=== PATIENT | male | born 1955 | race Caucasian/White ===

== ENCOUNTER 2016-11-04 11:12 | Emergency (ER) | payer BC ==
[2016-11-04 12:25] VITALS: BP 143/83
--- NOTE | 2016-11-04 13:05 | UC ---
Throat Pain/Nasal Michael HPI - HPI Summary HPI Summary: complaint of cough nasal congestion that started approx 5 days ago coughing up yellow phlegm sore throat that is resolving intermittent headaches slight muscle achiness denies ear pain denies N/V/D denies fever and chills took mucinex without relief this morning - History of Current Complaint Chief Complaint: UCGeneralIllness Stated Complaint: CONGESTION Time Seen by Provider: 11/04/16 12:54 Hx Obtained From: Patient - Allergies/Home Medications Allergies/Adverse Reactions: Allergies Allergy/AdvReac Type Severity Reaction Status Date / Time No Known Allergies Allergy Verified 11/04/16 12:25 PMH/Surg Hx/FS Hx/Imm Hx Previously Healthy: Yes Cardiovascular History Of: Reports: Hypertension - Surgical History Surgical History: Yes Surgery Procedure, Year, and Place: 2013 b/l leg veins endartectomy, right leg stent, - Family History Known Family History: Positive: Hypertension Negative: Cardiac Disease, Diabetes - Social History Occupation: Employed Full-time Lives: With Family Alcohol Use: Daily Alcohol Amount: 2-3 wine Substance Use Type: None Smoking Status (MU): Former Smoker When Did the Patient Quit Smoking/Using Tobacco: 2003 - Immunization History Most Recent Influenza Vaccination: 2012 Review of Systems Constitutional: Negative Skin: Negative Eyes: Negative ENT: Sore Throat, Nasal Discharge Respiratory: Cough Cardiovascular: Negative Gastrointestinal: Negative Genitourinary: Negative Motor: Negative Neurovascular: Negative Musculoskeletal: Negative Neurological: Negative Psychological: Negative All Other Systems Reviewed And Are Negative: Yes Physical Exam Triage Information Reviewed: Yes Appearance: No Pain Distress, Well-Nourished Vital Signs: Initial Vital Signs Temp 99.4 F 11/04/16 12:21 Pulse 92 11/04/16 12:21 Resp 16 11/04/16 12:21 BP 143/83 11/04/16 12:21 Pulse Ox 99 11/04/16 12:21 Vital Signs Reviewed: Yes Eyes: Positive: Conjunctiva Clear ENT: Positive: Pharyngeal erythema, Nasal congestion, TM bulging. Negative: TM red, Tonsillar swelling, Tonsillar exudate Neck: Positive: No Lymphadenopathy Respiratory: Positive: Lungs clear, Normal breath sounds, No respiratory distress Cardiovascular: Positive: RRR, No Murmur, Pulses Normal Abdomen Description: Positive: Nontender, Soft Bowel Sounds: Positive: Present Musculoskeletal: Positive: No Edema Neurological: Positive: Alert Psychological Exam: Normal Skin Exam: Normal Throat Pain/Nasal Course/Dx - Differential Dx/Diagnosis Differential Diagnosis/HQI/PQRI: Influenza, Pharyngitis, URI Provider Diagnoses: URI Discharge - Discharge Plan Condition: Stable Disposition: HOME Patient Education Materials: Upper Respiratory Infection (ED) Referrals: Mervat Nino MD [Primary Care Provider] - Additional Instructions: VIRAL UPPER RESPIRATORY INFECTION (COMMON COLD) What is Viral Upper Respiratory Infection? Viral upper respiratory infection is the medical term for the common cold. Respiratory infections can be caused by either a virus or bacteria. The common cold is caused by a virus. The virus travels through the air and can be passed easily from one person to another. This is one reason that it is so important to cover your mouth when you cough or sneeze. When you cover your mouth you will get the virus on your hands. If you touch something with that hand the virus is spread to the object you touch. Because of this you should be sure to wash your hands often when you have a cold. Symptoms usually begin 1 to 3 days after the virus takes hold in your body. Other people can catch your cold even before you start to notice symptoms, which is one reason why colds are hard to prevent. Symptoms May Include: Scratchiness or tickling in the throat Sore throat Stuffy nose Generalized aches and pains Coughing or sneezing Feeling tired Treatment Recommendations: Drink plenty of clear, nonalcoholic fluids, such as water, sports drinks, or juice. For example, an average adult should drink 8 ounces every hour, a child 6 to 10 years should drink 4 ounces every hour, and a child under 6 should drink 1 to 2 ounces every hour. You should rest as much as possible. You can use a cool-mist humidifier or steam vaporizer to increase air moisture. This will make it easier to breathe. Remember that a steam vaporizer may contain hot water that can cause severe frances. If you smoke, stopsmoke irritates bronchial passages. If you are coughing up mucus, and milk seems to make the sputum thicker, do not eat or drink foods that contain milk. You want to try to cough up mucous whenever possible so that you dont get pneumonia. Do not use cough suppressant medicine without your healthcare providers [place]. You should take all medications prescribed until completely gone, or as instructed. Non-prescription medicine such as acetaminophen (Tylenol) or ibuprofen (Motrin , Advil) may help your aches, pains, and fever. Do not take someone else's medicine, or penicillin tablets that you may have saved. You could cause a more serious problem than you already have. Don't bundle up to sweat out a fever. It only makes your fever worse. If you feel cold, cover up; if you feel warm, dress lightly.
== END 2016-11-04 13:15 | disposition home or self-care (01) ==
LOC: UCCORT 11:12
DX: J06.9 Acute upper respiratory infection, unspecified (principal); Z95.820 Peripheral vascular angioplasty status with implants and grafts; Z87.891 Personal history of nicotine dependence
CPT/HCPCS: 99211; G0463

== ENCOUNTER 2016-11-27 09:55 | Emergency (ER) | payer BC ==
--- NOTE | 2016-11-27 11:40 | UC ---
Back Pain HPI - HPI Summary HPI Summary: 3d ago was lifting a heavy 200lb log, felt sudden shocking pain in lower back which brought him to his knees. Pain since then. Hard to get comfortable. Feels best to stand. Hurts most to get up from bed, or get out of chair/car. No history of similar pain in past. Does not have chronic back pains. Now every movement hurts, twisting, bending. - History of Current Complaint Chief Complaint: UCBackPain Stated Complaint: BACK PAIN Time Seen by Provider: 11/27/16 11:28 Hx Obtained From: Patient Onset/Duration: Sudden Onset, Lasting Days - 3 Timing: Constant Severity Initially: Severe Severity Currently: Moderate Back Pain: Is Discrete @ - left lumbar area, radiates to left thigh Character: Sharp, Aching, Stiffness Aggravating: Movement, Lifting, Bending Alleviating: Rest, Position Associated Signs And Symptoms: Positive: Pain with Weight Bearing - Risk Factors AAA Risk Factors: Negative TAD Risk Factors: Negative Cauda Equina Risk Factors: Negative Epidural Abscess Risk Factors: Negative - Allergies/Home Medications Allergies/Adverse Reactions: Allergies Allergy/AdvReac Type Severity Reaction Status Date / Time No Known Allergies Allergy Verified 11/04/16 12:25 Home Medications: Home Medications Ibuprofen TAB* [Advil TAB*] 400 mg PO Q6H PRN 11/27/16 [History Confirmed ] PMH/Surg Hx/FS Hx/Imm Hx Cardiovascular History Of: Reports: Hypertension - Surgical History Surgical History: Yes Surgery Procedure, Year, and Place: 2013 b/l leg veins endartectomy, right leg stent, - Family History Known Family History: Positive: Hypertension Negative: Cardiac Disease, Diabetes - Social History Occupation: Employed Full-time Lives: With Family Alcohol Use: Daily Alcohol Amount: 3 mj daily Substance Use Type: None Smoking Status (MU): Former Smoker When Did the Patient Quit Smoking/Using Tobacco: 2003 - Immunization History Most Recent Influenza Vaccination: 2012 Review of Systems Constitutional: Negative Skin: Negative Eyes: Negative ENT: Negative Respiratory: Negative Cardiovascular: Negative Gastrointestinal: Negative Genitourinary: Negative Motor: Negative Neurovascular: Negative Musculoskeletal: Arthralgia, Decreased ROM, Myalgia Neurological: Negative Psychological: Negative All Other Systems Reviewed And Are Negative: Yes Physical Exam Triage Information Reviewed: Yes Appearance: Well-Appearing, No Pain Distress, Well-Nourished Vital Signs: Initial Vital Signs Temp 99.3 F 11/27/16 11:12 Pulse 82 11/27/16 11:12 Resp 16 11/27/16 11:12 BP 153/69 11/27/16 11:12 Pulse Ox 100 11/27/16 11:12 Vital Signs Reviewed: Yes Eye Exam: Normal ENT: Positive: Hearing grossly normal Neck exam: Normal Neck: Positive: Supple, Nontender Respiratory Exam: Normal Cardiovascular Exam: Normal Musculoskeletal Exam: Other - pain in left lumbar area, palpable muscle tightness there. Little discomfort with palpation. Hurts to twist/bend. Normal sensation. Stiff gait. Neurological Exam: Normal Psychological Exam: Normal Skin Exam: Normal Diagnostics - Laboratory Diagnostic Studies Completed/Ordered: XRay LS spine: L5-S1 DJD, no acute Back Pain Course/Dx - Differential Dx/Diagnosis Differential Diagnosis/HQI/PQRI: Herniated Disc, Strain, Sprain Provider Diagnoses: low back strain Discharge - Discharge Plan Condition: Stable Disposition: HOME Prescriptions: Cyclobenzaprine TAB* [Flexeril TAB*] 10 mg PO TID PRN #30 tab PRN Reason: back spasms HYDROcodone/ACETAMIN 5-325 MG* [[place] 5-325 TAB*] 1 - 2 tab PO Q6H PRN #30 tab MDD 6 tab PRN Reason: Pain Patient Education Materials: Low Back Strain (ED), Lower Back Exercises (ED) Referrals: Sujatha Harding MD [Primary Care Provider] -
--- NOTE | 2016-11-27 12:15 | RAD ---
INDICATION: Back pain after lifting COMPARISON: None TECHNIQUE: Routine PA, lateral, and oblique imaging was performed . FINDINGS: Bones: There are no acute bony findings. There are minor degenerative changes with endplate sclerosis.. Alignment: Normal Disc spaces: There is minor narrowing about L5-S1 Soft tissues: There are extensive vascular calcifications of the aorta and iliac vessels. IMPRESSION: MINOR DEGENERATIVE DISC DISEASE L5-S1. VASCULAR CALCIFICATIONS.
[2016-11-27 12:40] VITALS: BP 147/78
== END 2016-11-27 12:40 | disposition home or self-care (01) ==
LOC: UCCORT 09:55
DX: S39.012A Strain of muscle, fascia and tendon of lower back, initial encounter (principal); X50.0XXA Overexertion from strenuous movement or load, initial encounter; X50.9XXA Other and unspecified overexertion or strenuous movements or postures, initial encounter; M79.1 Myalgia; M15.8 Other polyosteoarthritis; M47.897 Other spondylosis, lumbosacral region; I10 Essential (primary) hypertension; Z87.891 Personal history of nicotine dependence
CPT/HCPCS: 72110; 99212; G0463

== ENCOUNTER 2016-12-02 08:23 | Emergency (ER) | payer BC ==
[2016-12-02] MEDS ORDERED: DOXYcycline CAP(*) 100 MG PO ONE (09:11)
--- NOTE | 2016-12-02 09:11 | ED ---
Skin Complaint - HPI Summary HPI Summary: Three days ago he was chopping wood when it was warmer. he noted a tick yesterday. he has brought it in. there is small wound in the location of the tick but no rashes otherwise and no flu like illness. He believes he has had lyme disease in the past and was treated. - History of Current Complaint Chief Complaint: UCSkin Time Seen by Provider: 12/02/16 09:04 Stated Complaint: TICK Hx Obtained From: Patient Onset/Duration: Started Hours Ago Onset Severity: Mild Current Severity: Mild Skin Location: Discrete, Other: - right lateral flank wound. Aggravating Symptom(s): Nothing Alleviating Symptom(s): Nothing Associated Signs & Symptoms: Negative Related History: Insect Bite/Sting - Allergy/Home Medications Allergies/Adverse Reactions: Allergies Allergy/AdvReac Type Severity Reaction Status Date / Time No Known Allergies Allergy Verified 12/02/16 08:47 PMH/Surg Hx/FS Hx/Imm Hx Cardiovascular History: Reports: Hx Hypertension - Surgical History Surgery Procedure, Year, and Place: 2013 b/l leg veins endartectomy, right leg stent, Infectious Disease History: Yes Infectious Disease History: Reports: Hx Shingles - October 2016 Denies: Traveled Outside the [place] in Last 30 Days - Family History Known Family History: Positive: Hypertension Negative: Cardiac Disease, Diabetes - Social History Alcohol Use: Daily Alcohol Amount: 3 mj daily Hx Substance Use: No Substance Use Type: Reports: None Smoking Status (MU): Former Smoker Review of Systems All Other Systems Reviewed And Are Negative: Yes Physical Exam Triage Information Reviewed: Yes Vital Signs On Initial Exam: Initial Vitals Temp Pulse Resp BP 98.9 F 83 18 121/91 12/02/16 08:39 12/02/16 08:39 12/02/16 08:39 12/02/16 08:39 Vital Signs Reviewed: Yes Appearance: Positive: Well-Appearing, No Pain Distress, Well-Nourished. Negative: Ill-Appearing, Pain Distress Skin: Positive: Warm, Skin Color Reflects Adequate Perfusion, Other - right lateral flank shallow wound size of a dime without significant surrounding erythema. Eyes: Positive: Normal, EOMI, MARGARITA, Conjunctiva Clear. Negative: Conjunctiva Inflammed ENT: Positive: Normal ENT inspection. Negative: Nasal congestion Neck: Positive: Supple, Nontender, No Lymphadenopathy. Negative: Nuchal Rigidity, Tenderness @ Respiratory/Lung Sounds: Positive: Clear to Auscultation, Breath Sounds Present Cardiovascular: Positive: Normal, RRR, Pulses are Symmetrical in both Upper and Lower Extremities Abdomen Description: Positive: Nontender, No Organomegaly Musculoskeletal: Positive: Normal. Negative: Edema Left, Edema Right Neurological: Positive: Normal, Sensory/Motor Intact, Alert, Oriented to Person Place, Time, CN Intact II-III Psychiatric: Positive: Normal Diagnostics - Vital Signs Vital Signs Temp Pulse Resp BP 12/02/16 08:39 98.9 F 83 18 121/91 - Laboratory Lab Statement: Any lab studies that have been ordered have been reviewed, and results considered in the medical decision making process. Course/Dx - Course Course Of Treatment: Possible lyme transmission. One dose doxycycline and he will be looking out for signs of flu like illness, erythema migranes, meningitis , encephalitis. he will report back in this situation. - Differential Diagnoses - Skin Complaint Differential Diagnoses: Abscess - Diagnoses Provider Diagnoses: Tick bite Discharge - Discharge Plan Condition: Good Disposition: HOME Patient Education Materials: Tick Bite (ED) Referrals: Sujatha Harding MD [Primary Care Provider] - If Needed
[2016-12-02 09:25] VITALS: BP 134/73
== END 2016-12-02 09:23 | disposition home or self-care (01) ==
LOC: UCCORT 08:23
DX: S30.861A Insect bite (nonvenomous) of abdominal wall, initial encounter (principal); W57.XXXA Bitten or stung by nonvenomous insect and other nonvenomous arthropods, initial encounter; Y93.89 Activity, other specified; Y92.9 Unspecified place or not applicable; Z87.891 Personal history of nicotine dependence
CPT/HCPCS: 87168; 99212; A9270-GY; G0463

== ENCOUNTER 2017-02-17 08:18 | Emergency (ER) | payer BC ==
[2017-02-17 08:34] VITALS: BP 134/69
--- NOTE | 2017-02-17 09:32 | UC ---
Skin Complaint HPI - HPI Summary HPI Summary: 61 yo male with tick bite right thigh may have been on 2 days no hx LD - History of Current Complaint Chief Complaint: UCBiteInjury Time Seen by Provider: 02/17/17 09:24 Stated Complaint: TICK BITE Hx Obtained From: Patient Onset/Duration: Sudden Onset Timing: Constant Current Severity: None Pain Intensity: 0 Pain Scale Used: 0-10 Numeric Character: Redness Aggravating: Nothing Alleviating: Nothing Associated Signs & Symptoms: Negative: Nausea, Vomiting, Numbness, Thirst, Diaphoresis, Weakness, Pallor, Shivering, Difficulty Breathing, Fever, Chills, Cough, Wheezing, Chest Pain, Hoarseness, Throat Tightening, Rash, Abdominal Pain , Lightheadedness, Syncope, Drainage, Bruising, Tenderness, Red Streaks, Joint Swelling Related History: Insect Bite/Sting - Allergy/Home Medications Allergies/Adverse Reactions: Allergies Allergy/AdvReac Type Severity Reaction Status Date / Time No Known Allergies Allergy Verified 02/17/17 08:30 Home Medications: Home Medications Aspirin TAB* [Aspirin 325 MG TAB*] 325 mg PO DAILY 02/17/17 [History Confirmed 02/17/17] Lisinopril TAB* [Prinivil TAB*] 10 mg PO DAILY 02/17/17 [History Confirmed 02/17] Simvastatin TAB(NF) [Zocor(NF)] 10 mg PO DAILY 02/17/17 [History Confirmed 02/17] Review of Systems Constitutional: Negative Skin: Negative Eyes: Negative ENT: Negative Respiratory: Negative Cardiovascular: Negative Gastrointestinal: Negative Genitourinary: Negative Motor: Negative Neurovascular: Negative Musculoskeletal: Negative Neurological: Negative Psychological: Negative All Other Systems Reviewed And Are Negative: Yes PMH/Surg Hx/FS Hx/Imm Hx Previously Healthy: Yes Cardiovascular History Of: Reports: Hypertension - Surgical History Surgical History: Yes Surgery Procedure, Year, and Place: 2013 b/l leg veins endartectomy, right leg stent, - Family History Known Family History: Positive: Hypertension Negative: Cardiac Disease, Diabetes - Social History Alcohol Use: Daily Alcohol Amount: 3 mj daily Substance Use Type: None Smoking Status (MU): Former Smoker When Did the Patient Quit Smoking/Using Tobacco: 2003 - Immunization History Most Recent Influenza Vaccination: 2013 Physical Exam Triage Information Reviewed: Yes Appearance: Well-Appearing, No Pain Distress, Well-Nourished Vital Signs: Initial Vital Signs Temp 98.3 F 02/17/17 08:26 Pulse 72 02/17/17 08:26 Resp 16 02/17/17 08:26 BP 134/69 02/17/17 08:26 Pulse Ox 100 02/17/17 08:26 Vital Signs Reviewed: Yes Eyes: Positive: Conjunctiva Clear ENT: Positive: Hearing grossly normal. Negative: Nasal congestion, Nasal drainage, Trismus, Muffled/hoarse voice Neck: Positive: Supple, Nontender Respiratory: Positive: Lungs clear, Normal breath sounds, No respiratory distress Cardiovascular: Positive: RRR, No Murmur. Negative: Tachycardia Musculoskeletal: Positive: ROM Intact, No Edema Neurological: Positive: Alert Skin Exam: Other - see image Course/Dx - Diagnoses Provider Diagnoses: tick bite. lyme disease prophylaxis Discharge - Discharge Plan Condition: Stable Disposition: HOME Prescriptions: DOXYcycline CAP(*) [DOXYcycline 100MG CAP(*)] 200 mg PO ONCE #2 cap Patient Education Materials: Tick Bite (ED) Referrals: Sujatha Harding MD [Primary Care Provider] - Additional Instructions: call for any questions return for any problems Images Front/Back of Body, Lg (Wise): 1 - tick bite site/some surrounding erthyema
== END 2017-02-17 09:40 | disposition home or self-care (01) ==
LOC: UCCORT 08:18
DX: S70.361A Insect bite (nonvenomous), right thigh, initial encounter (principal); W57.XXXA Bitten or stung by nonvenomous insect and other nonvenomous arthropods, initial encounter; Y93.9 Activity, unspecified; Y92.9 Unspecified place or not applicable; I10 Essential (primary) hypertension; Z87.891 Personal history of nicotine dependence
CPT/HCPCS: 99212; G0463

== ENCOUNTER 2019-01-20 10:20 | Emergency (ER) | payer BC ==
[2019-01-20 10:58] VITALS: BP 164/84
--- NOTE | 2019-01-20 11:18 | UC ---
Bite Injury/Animal HPI - HPI Summary HPI Summary: Bitten on L hand by his friend's dog when he stepped into its domain yesterday. today, the back of his hand is red and painful. denied fever, bony pain, limited ROM and FB sensation. last tetanus was 3 weeks ago. dog is UTD on immunizations. - History of Current Complaint Chief Complaint: UCBiteInjury Stated Complaint: DOG BITE LEFT HAND Time Seen by Provider: 01/20/19 11:12 Hx Obtained From: Patient Pain Intensity: 0 Aggravating Factor(s): Nothing Associated Signs And Symptoms: Negative: Fever, Numbness/Tingling, Limited ROM - Allergies/Home Medications Allergies/Adverse Reactions: Allergies Allergy/AdvReac Type Severity Reaction Status Date / Time No Known Allergies Allergy Verified 01/20/19 10:51 PMH/Surg Hx/FS Hx/Imm Hx Endocrine History: Dyslipidemia Cardiovascular History: Hypertension - Surgical History Surgical History: Yes Surgery Procedure, Year, and Place: 2013 b/l leg veins endartectomy, right leg stent, - Family History Known Family History: Positive: Hypertension Negative: Cardiac Disease, Diabetes - Social History Alcohol Use: Daily Alcohol Amount: 3 mj daily Substance Use Type: None Smoking Status (MU): Former Smoker When Did the Patient Quit Smoking/Using Tobacco: 2004 - Immunization History Most Recent Influenza Vaccination: 2013 Most Recent Tetanus Shot: 2 weeks ago 2019 Hx Tetanus, Diphtheria Vaccination: Yes Vaccination Up to Date: Yes Review of Systems All Other Systems Reviewed And Are Negative: Yes Skin: Positive: Rash - L hand red/swollen Physical Exam Triage Information Reviewed: Yes Appearance: Well-Appearing Vital Signs: Initial Vital Signs Temp 99 F 01/20/19 10:52 Pulse 96 01/20/19 10:52 Resp 16 01/20/19 10:52 BP 164/84 01/20/19 10:52 Pulse Ox 97 01/20/19 10:52 Vital Signs Reviewed: Yes Eyes: Positive: Conjunctiva Clear Respiratory: Positive: Lungs clear Cardiovascular: Positive: RRR Abdomen Description: Positive: Nontender Musculoskeletal: Positive: Other: - LUE: dorsal and ulnar side of hand with wounds. dorsal hand with mild swelling and erythema plus streaking to level of elbow. no adenopathy. no drainage from wounds. no bony deformity or tenderness. the hand and arm have full s/v/m function. Neurological: Positive: Alert Psychological: Positive: Age Appropriate Behavior Skin Exam: Normal Bite Injury Course/Dx - Differential Dx/Diagnosis Provider Diagnosis: Dog bite of left hand with infection, Acute lymphangitis Discharge - Sign-Out/Discharge Documenting (check all that apply): Patient Departure All imaging exams completed and their final reports reviewed: No Studies - Discharge Plan Condition: Stable Disposition: HOME Prescriptions: Amoxicillin/Clavulanate TAB* [Augmentin TAB 875*] 875 mg PO BID 10 Days #20 tab Patient Education Materials: Cellulitis (DC), Lymphangitis (ED) Referrals: Mandi Fox NP [Primary Care Provider] - 2 Days Additional Instructions: SOAK LEFT HAND IN WARM SOAPY WATER 2-3 TIMES DAILY FOR 15-20 MINUTES. GO TO THE ER FOR ANY WORSENING. - Billing Disposition and Condition Condition: STABLE Disposition: Home - Attestation Statements Provider Attestation: I was available for consult. This patient was seen by the JOHN. The patient was not presented to , seen by or examined by ak -Edward Francois MD
== END 2019-01-20 11:47 | disposition home or self-care (01) ==
LOC: UCCORT 10:20
DX: S61.452A Open bite of left hand, initial encounter (principal); L08.9 Local infection of the skin and subcutaneous tissue, unspecified; L03.124 Acute lymphangitis of left upper limb; W54.0XXA Bitten by dog, initial encounter; Y92.89 Other specified places as the place of occurrence of the external cause; E78.5 Hyperlipidemia, unspecified; I10 Essential (primary) hypertension; Z87.891 Personal history of nicotine dependence
CPT/HCPCS: 99212; G0463

== ENCOUNTER 2019-12-20 17:11 | Emergency (ER) | payer MEDICARE, BC ==
[2019-12-20 17:46] VITALS: BP 164/84
--- NOTE | 2019-12-20 18:05 | UC ---
Skin Complaint HPI - HPI Summary HPI Summary: 64 yo man with onset of erythematous scaly rash on the lower left eyelid and some on the upper eyelid for the past several days. The dog he is caring for has ringworm and he is concerned. - History of Current Complaint Chief Complaint: UCSkin Time Seen by Provider: 12/20/19 17:55 Stated Complaint: SKIN COMPLAINT Hx Obtained From: Patient Onset/Duration: Gradual Onset, Lasting Days - 4 Skin Exposure Onset/Duration: Days Ago - 4 Onset Severity: Mild Current Severity: Mild Pain Intensity: 1 Location: Discrete Aggravating Factor(s): Nothing Alleviating Factor(s): Nothing Associated Signs & Symptoms: Positive: Negative - Allergy/Home Medications Allergies/Adverse Reactions: Allergies Allergy/AdvReac Type Severity Reaction Status Date / Time No Known Allergies Allergy Verified 01/20/19 10:51 Home Medications: Home Medications Aspirin TAB* [Aspirin 325 MG TAB*] 325 mg PO DAILY 02/17/17 [History Confirmed 12/20/19] Lisinopril TAB* [Prinivil TAB 10 MG*] 10 mg PO DAILY 02/17/17 [History Confirmed 12/20/19] Simvastatin TAB(NF) [Zocor 10 MG (NF)] 10 mg PO DAILY 02/17/17 [History Confirmed 12/20/19] Ciclopirox Olamine [Loprox] 0.77 % EX BID #15 gm 12/20/19 [Rx] PMH/Surg Hx/FS Hx/Imm Hx Previously Healthy: Yes Endocrine History: Dyslipidemia Cardiovascular History: Hypertension - Surgical History Surgical History: Yes Surgery Procedure, Year, and Place: 2013 b/l leg veins endartectomy, right leg stent, - Family History Known Family History: Positive: Hypertension Negative: Cardiac Disease, Diabetes - Social History Alcohol Use: Daily Alcohol Amount: 3 mj daily Substance Use Type: None Smoking Status (MU): Former Smoker When Did the Patient Quit Smoking/Using Tobacco: 2003 - Immunization History Most Recent Influenza Vaccination: 2013 Most Recent Tetanus Shot: 2 weeks ago 2019 Hx Tetanus, Diphtheria Vaccination: Yes Vaccination Up to Date: Yes Review of Systems All Other Systems Reviewed And Are Negative: Yes Constitutional: Positive: Negative Skin: Positive: Rash Eyes: Positive: Negative ENT: Positive: Negative Respiratory: Positive: Negative Cardiovascular: Positive: Other - treated hypertension, his usual blood pressure is usually in the 118 range. Gastrointestinal: Positive: Negative Genitourinary: Positive: Negative Motor: Positive: Negative Neurovascular: Positive: Negative Musculoskeletal: Positive: Negative Neurological/Mental Status: Positive: Negative Psychological: Positive: Negative Physical Exam Triage Information Reviewed: Yes Appearance: Well-Appearing, No Pain Distress Vital Signs: Initial Vital Signs Temp 99.2 F 12/20/19 17:42 Pulse 94 12/20/19 17:42 Resp 16 12/20/19 17:42 BP 164/84 12/20/19 17:42 Pulse Ox 97 12/20/19 17:42 Eyes: Positive: Conjunctiva Inflamed - mild injection bilaterally ENT: Positive: Normal ENT inspection Neck: Positive: Supple, Nontender, No Lymphadenopathy Respiratory: Positive: Lungs clear, Normal breath sounds Cardiovascular: Positive: RRR, No Murmur Musculoskeletal Exam: Normal Neurological Exam: Normal Psychological Exam: Normal Skin Exam: Other - Erythematous skin on cheeks consistent with chronic rosacea. Scaley patch about 2.5 x 1 cm lower outer border of left lower eyelid. Small papules upper lid. Mucous cyst lower inner canthus(chronic) Course/Dx - Course Course Of Treatment: most likely tinea and will treat topically, avoiding cream in the eye. - Differential Diagnoses - Skin Complaint Differential Diagnoses: Tinea, Other - rosacea - Diagnoses Provider Diagnosis: Tinea Discharge ED - Sign-Out/Discharge Documenting (check all that apply): Patient Departure All imaging exams completed and their final reports reviewed: No Studies - Discharge Plan Condition: Stable Disposition: HOME Prescriptions: Ciclopirox Olamine [Loprox] 0.77 % EX BID #15 gm Patient Education Materials: Tinea Corporis (ED) Referrals: Mandi Fox NP [Primary Care Provider] - Additional Instructions: Apply a thin film of Loprox cream twice daily, staying several mm away from the eye border. Massage in well. Anticipate it will take 2 to 3 weeks to resolve. Follow up if you have persistent rash or the rash is progressing. - Billing Disposition and Condition Condition: STABLE Disposition: Home
== END 2019-12-20 18:27 | disposition home or self-care (01) ==
LOC: UCCORT 17:11
DX: B35.4 Tinea corporis (principal); E78.5 Hyperlipidemia, unspecified; I10 Essential (primary) hypertension; Z79.899 Other long term (current) drug therapy; Z87.891 Personal history of nicotine dependence
CPT/HCPCS: 99212; G0463

== ENCOUNTER 2020-01-20 10:43 | Emergency (ER) | payer MEDICARE, BC ==
--- NOTE | 2020-01-20 11:12 | UC ---
Bite Injury/Animal HPI - HPI Summary HPI Summary: 64-year-old male comes in with a chief complaint of an infected tick bite on his abdomen. Patient noticed the tick about 10 days ago and he took it out however he left the head of the tick inside his skin. Recently's noticed some redness in the area that is spreading. No fevers no chills feels well otherwise. - History of Current Complaint Chief Complaint: UCBiteInjury Stated Complaint: TICK BITE Time Seen by Provider: 01/20/20 10:45 Pain Intensity: 0 - Allergies/Home Medications Allergies/Adverse Reactions: Allergies Allergy/AdvReac Type Severity Reaction Status Date / Time No Known Allergies Allergy Verified 01/20/20 11:10 Home Medications: Home Medications Aspirin TAB* [Aspirin 325 MG TAB*] 325 mg PO DAILY 02/17/17 [History Confirmed 01/20/20] Lisinopril TAB* [Prinivil TAB 10 MG*] 10 mg PO DAILY 02/17/17 [History Confirmed 01/20/20] Simvastatin TAB(NF) [Zocor 10 MG (NF)] 10 mg PO DAILY 02/17/17 [History Confirmed 01/20/20] DOXYcycline CAP(*) [DOXYcycline 100MG CAP(*)] 100 mg PO BID #28 cap 01/20/20 [Rx ] PMH/Surg Hx/FS Hx/Imm Hx Previously Healthy: Yes Cardiovascular History: Hypertension - Surgical History Surgical History: Yes Surgery Procedure, Year, and Place: 2013 b/l leg veins endartectomy, right leg stent, - Family History Known Family History: Positive: Hypertension Negative: Cardiac Disease, Diabetes - Social History Alcohol Use: Daily Alcohol Amount: 3 mj daily Substance Use Type: None Smoking Status (MU): Former Smoker When Did the Patient Quit Smoking/Using Tobacco: 2003 - Immunization History Most Recent Influenza Vaccination: 2013 Most Recent Tetanus Shot: 2018 Hx Tetanus, Diphtheria Vaccination: Yes Vaccination Up to Date: Yes Review of Systems All Other Systems Reviewed And Are Negative: Yes Constitutional: Positive: Negative Skin: Positive: Other - see hpi Eyes: Positive: Negative ENT: Positive: Negative Respiratory: Positive: Negative Motor: Positive: Negative Neurovascular: Positive: Negative Musculoskeletal: Positive: Negative Neurological/Mental Status: Positive: Negative Psychological: Positive: Negative Is Patient Immunocompromised?: No Physical Exam Triage Information Reviewed: Yes Appearance: Well-Appearing, No Pain Distress, Well-Nourished Vital Signs: Initial Vital Signs Temp 98.6 F 01/20/20 11:06 Pulse 96 01/20/20 11:06 Resp 16 01/20/20 11:06 BP 171/99 01/20/20 11:06 Pulse Ox 98 01/20/20 11:06 Vital Signs Reviewed: Yes Eye Exam: Normal Eyes: Positive: Conjunctiva Clear Neck: Positive: Supple Respiratory: Positive: No respiratory distress Musculoskeletal: Positive: Strength Intact, ROM Intact Neurological: Positive: Alert Psychological: Positive: Age Appropriate Behavior Skin: Positive: Other - On the upper abdomen there is a 3 mm scab at the site of the tick bite surrounded by 5 cm diameter blanching erythema that is not in a bull's-eye pattern. Bite Injury Course/Dx - Course Course Of Treatment: Patient has rash at the site of his tick bite which may be localized cellulitis or Lyme disease. Will treat with doxycycline 100 milligrams by mouth twice a day for 14 days. Patient's to get reevaluated if not improving or worsening. - Differential Dx/Diagnosis Provider Diagnosis: Tick bite of abdominal wall, Cellulitis Discharge ED - Sign-Out/Discharge Documenting (check all that apply): Patient Departure All imaging exams completed and their final reports reviewed: No Studies - Discharge Plan Condition: Stable Disposition: HOME Prescriptions: DOXYcycline CAP(*) [DOXYcycline 100MG CAP(*)] 100 mg PO BID #28 cap Patient Education Materials: Lyme Disease (ED), Cellulitis (ED), Tick Bite (ED) Referrals: Mandi Fox NP [Primary Care Provider] - Additional Instructions: FOLLOW UP WITH YOUR DOCTOR IF NOT COMPLETELY IMPROVED. GET REEVALUATED IF NOT IMPROVING OR WORSE; FEVER, SPREAD OF INFECTION, YOU FEEL ILL OR ANY QUESTIONS OR CONCERNS. - Billing Disposition and Condition Condition: STABLE Disposition: Home
[2020-01-20 11:20] VITALS: BP 194/85
== END 2020-01-20 11:20 | disposition home or self-care (01) ==
LOC: UCCORT 10:43
DX: S30.861A Insect bite (nonvenomous) of abdominal wall, initial encounter (principal); L03.311 Cellulitis of abdominal wall; W57.XXXA Bitten or stung by nonvenomous insect and other nonvenomous arthropods, initial encounter; Y92.9 Unspecified place or not applicable; I10 Essential (primary) hypertension; Z79.899 Other long term (current) drug therapy; Z87.891 Personal history of nicotine dependence
CPT/HCPCS: 99212; G0463